=== PATIENT | female | born 1990 | race Caucasian/White ===

== ENCOUNTER 2018-12-17 04:29 | Emergency (ER) | payer BC, OTHER ==
[~2018-12-17] VITALS: Ht 160 cm; Wt 118.0 kg
[~2018-12-17 04:29] MED LIST: PHEN-538 PO
[2018-12-17 04:30] VITALS: BP 131/84; PULSE 69; RESP 18; Ht 160 cm; Wt 118.0 kg
--- NOTE | 2018-12-17 04:48 | ERD ---
ER Documentation Chief Complaint Chief Complaint states vaginal pain since yesterday, also c/o painful urination HPI This is a 28-year-old female presents emergency department with complaints of dysuria and urinary frequency since yesterday. Sexually active with one partner only. Partner has no symptoms. LMP: November 30, 2018. A0. Denies headache, head injury, loss of consciousness, dizziness, neck pain, neck stiffness, throat pain, difficulty swallowing, difficulty breathing lying flat, shoulder pain, chest pain, back pain, abdominal pain, nausea, vomiting, constipation, diarrhea, or possibility being , loss of bowel and bladder control, trauma, injury, falls, difficulty walking due to pain, numbness or tingling sensation, calf pain, recent travel, recent major surgery in the last 3 weeks, calf pain, recent long travel, recent exposure to any illness, recent antibiotic use in the last 3 months, fever, chills, seizures. Past medical history: Denies. Surgical history: Cholecystectomy. Social: Denies smoking, use of alcoholic beverages, use of illegal drugs. ROS All systems reviewed and are negative except as per history of present illness. Medications Home Meds Active Scripts Phenazopyridine Hcl* (Pyridium*) 200 Mg Tab, 200 MG PO TID PRN for URINARY PAIN, #6 TAB Prov:PHUONGGRETAGUSTAVO Guzman 12/17/18 Reported Medications [None] No Conflict Check 07/24/09 Allergies Allergies: Coded Allergies: No Known Drug Allergy (Verified Allergy, Unknown, 05/05/12) PMhx/Soc History of Surgery: Yes (GALLBLADDER REMOVAL 2008) Anesthesia Reaction: No Hx Neurological Disorder: No Hx Respiratory Disorders: No Hx Cardiac Disorders: No Hx Psychiatric Problems: No Hx Miscellaneous Medical Probl: No Hx Alcohol Use: No Hx Substance Use: No Hx Tobacco Use: No Physical Exam Vitals Physical Exam Const: No acute distress Head: Atraumatic Eyes: Normal Conjunctiva. ENT: Normal External Ears, Nose and Mouth. Neck: Full range of motion. No meningismus. Resp: Clear to auscultation bilaterally Cardio: Regular rate and rhythm, no murmurs Abd: Soft, non tender, non distended. Normal bowel sounds. Negative Lester sign. Negative Tomás sign (heel jar test). Negative psoas sign. Negative Rovsing sign. Able to jump 10 times without developing lower abdominal pain. No CVA tenderness. Ambulatory with steady gait and without pain to abdomen. Skin: No petechiae or rashes. Color appears normal for ethnicity. No skin tenting. No signs of severe dehydration. Back: No midline or flank tenderness Ext: No cyanosis, or edema Neur: Awake and alert. No neurological deficits. Psych: Normal Mood and Affect Results 24 hrs Laboratory Tests Test 12/17/18 05:03 12/17/18 05:11 12/17/18 05:16 Urine Color YELLOW Urine Clarity CLEAR Urine pH 5.0 Urine Specific Raymond 1.021 Urine Ketones NEGATIVE mg/dL Urine Nitrite NEGATIVE mg/dL Urine Bilirubin NEGATIVE mg/dL Urine Urobilinogen NEGATIVE mg/dL Urine Leukocyte Esterase NEGATIVE Sujey/ul Urine Microscopic RBC 1 /HPF Urine Microscopic WBC 2 /HPF Urine Mucus FEW /HPF Urine Hemoglobin 1+ mg/dL Urine Glucose NEGATIVE mg/dL Urine Total Protein NEGATIVE mg/dl POC Beta HCG, Qualitative NEGATIVE Bedside Urine pH (LAB) 6.0 Bedside Urine Protein (LAB) Negative Bedside Urine Glucose (UA) Negative Bedside Urine Ketones (LAB) Negative Bedside Urine Blood Negative Bedside Urine Nitrite (LAB) Negative Bedside Urine Leukocyte Esterase (L Negative Current Medications Medications Dose Sig/Rosita Start Time Status Last (Trade) Ordered Route PRN Stop Time Admin Dose Reason Admin 200 mg ONCE ONCE 12/17/18 DC 12/17/18 Phenazopyridi PO 05:30 12/17/18 05:41 ne HCl 05:31 (Pyridium) Procedures/MDM Diagnostic tests: POC urine : Negative. POC urine dipstick: Reviewed. Urinalysis: Reviewed. Culture urine: Sent. Treatment: Pyridium. Re-evaluation: No episode of emesis here in the emergency department. No abdominal tenderness. Able to jump 5 times without developing lower abdominal pain. Stated that she feels much better at this time and that she is ready to go home. Stated that she is comfortable to go home. Differential diagnosis I have low suspicion for pancreatitis, sepsis, cholecystitis, Final diagnosis: Dysuria. Prescription: Pyridium. Follow-up with PCP in the next 24-48 hours. Come back here in the emergency department for any new symptoms or any worsening symptoms. All questions and concerns were answered. Patient and family members verbalized understanding and agreed with plan of care. Hemodynamically stable on discharge. Departure Diagnosis: Primary Impression: Dysuria Condition: Stable Additional Instructions: Follow-up with PCP in the next 24-48 hours. Come back here in the emergency department for any new symptoms or any worsening symptoms. GUSTAVO GARZA Dec 17, 2018 04:48
[2018-12-17] MEDS ORDERED: PHENAZOPYRIDINE 100 MG TAB PO ONE (05:30)
== END 2018-12-17 05:48 | disposition home or self-care (01) ==
LOC: FTE 04:29
DX: R30.0 Dysuria (principal); R10.2 Pelvic and perineal pain
CPT/HCPCS: 81001; 81025; 87086; Z7502; Z7610; 81003; 99283